=== PATIENT | female | born 1940 | race Hispanic/Latino ===

== ENCOUNTER 2020-10-24 16:20 | Inpatient (IN) | payer MEDICARE ==
[2020-10-24] VITALS (7 sets, daily range): BP systolic 123–137; BP diastolic 70–98
[~2020-10-24] VITALS: Ht 170.2 cm; Wt 87.1 kg
[~2020-10-24 16:20] MED LIST: ASPI-556 PO; ISOS30TA6 PO; LISI1TAB51 PO; SIMV40TA59 PO; VITA-164 PO
[2020-10-24] MEDS ORDERED: METOPROLOL TARTRATE 1 MG/ML 5ML VIAL IV ONE ×2 (17:16→17:37)
[2020-10-24 17:26] LABS: BASOPHILS % (AUTO) 0.5 % (0.0-5.0); HEMATOCRIT 38.7 % (36-48); LYMPHOCYTES % (AUTO) 29.7 % (21.0-51.0); MEAN CORPUSCULAR HEMOGLOBIN 29.3 pg (27.0-33.0); MEAN CORPUSCULAR HGB CONC 32.8 g/dL (32.0-36.0); MEAN CORPUSCULAR VOLUME 89.2 fL (79-99); MONOCYTES % (AUTO) 11.8 % (3.0-13.0); NEUTROPHILS % (AUTO) 55.8 % (40.0-77.0); PLATELET COUNT (AUTO) 289 K/uL (130-400); RED BLOOD CELL COUNT(AUTO) 4.34 MIL/uL (4.00-5.50); RED CELL DISTRIBUTION WIDTH 13.7 % (11.0-15.5); WHITE BLOOD COUNT (AUTO) 5.6 K/uL (4.8-10.8)
--- NOTE | 2020-10-24 17:35 | NUR ---
ASSESSMENT RECEIVED PT DIRECT ADMIT, AMBULATING FROM [facility] TO BED, A&OX3, CALM COOPERATIVE AND DOES NOT APPEAR TO BE IN ANY DISTRESS NOR ANY NEURO DEFICITS PRESENT. PT DENIES PAIN, SOB, NAUSEA OR DIZZINESS. TELEMETRY DISPLAYS ATRIAL FIBRILLATION WITH A RATE OF 130-140 BEATS PER MINUTE, PT RETURNED TO BED, LOPRESSOR 5MG IV [id number] X [address] LAZO WRITTEN ORDER, SBP 130 ,SEE VITAL SIGNS, PT DOES NOT APPEAR TO BE IN ANY DISTRESS NOR ANY NEURO DEFICITS PRESENT. LUNG SOUNDS CLEAR TO ALL LOBES, 2+ NON PITTING EDEMA TO BILATERAL LOWER EXTREMITIES. PT DOES CONFIRM EDEMA TO BILATERAL LOWER EXTREMITIES. TELE MONITOR DISPLAYS ATRIAL FIBRILLATION WITH A RATE OF UPPER 90-120 BEATS PER MINUTE, PT APPEARS COMFORTABLE AND DOES NOT APPEAR TO BE IN ANY DISTRESS. CALL LIGHT WITHIN REACH.
[2020-10-24 17:43] LABS: ALBUMIN 3.5 g/dL (3.5-5.0); BILIRUBIN,TOTAL 0.6 mg/dL (0.2-1.0); CREATININE 1.4 mg/dL (0.5-1.5); MAGNESIUM 1.6 mg/dL (1.80-2.40); POTASSIUM 3.4 mmol/L (3.5-5.1); TOTAL PROTEIN, SERUM 8.2 g/dL (6.0-8.3)
[2020-10-24] MEDS ORDERED: LACTULOSE 20 GM/30 ML UDCUP PO PRN ×2 (17:45→19:00)
[2020-10-24] MEDS ORDERED: DILTIAZEM HCL 125 MG/25 ML 125 MG in SODIUM CHLORIDE 0.9% 100 ML IV SCH (17:45)
[2020-10-24] MEDS ORDERED: ZOLPIDEM TARTRATE 5 MG TAB PO PRN (17:45)
[2020-10-24] MEDS ORDERED: ONDANSETRON HCL 4 MG/2 ML VIAL IVP PRN (17:45)
[2020-10-24] MEDS ORDERED: NITROGLYCERIN 0.4 MG SL TAB SL PRN (17:45)
[2020-10-24] MEDS ORDERED: CLONIDINE HCL 0.1 MG TABLET PO PRN (17:45)
[2020-10-24] MEDS ORDERED: SODIUM CHLORIDE 0.9% 10 ML VIAL IVP SCH (17:45)
[2020-10-24] MEDS ORDERED: DIPHENHYDRAMINE HCL 25 MG CAPSULE PO PRN (17:45)
[2020-10-24 17:55] LABS: B-TYPE NATRIURETIC PEPTIDE 389 pg/mL (0-100)
[2020-10-24 18:55] LABS: PROTHROMBIN TIME 10.8 SEC (9.6-11.6)
[2020-10-24] MEDS ORDERED: CETI10TA57 PO (18:59)
[2020-10-24] MEDS ORDERED: METO-408 PO (18:59)
[2020-10-24] MEDS ORDERED: HYDR12.54 PO (18:59)
[2020-10-24] MEDS ORDERED: SIMV-43 PO (18:59)
[2020-10-24] MEDS ORDERED: ASCO1TAB43 CHEW (18:59)
[2020-10-24] MEDS ORDERED: AMLO-257 PO (18:59)
[2020-10-24] MEDS ORDERED: ACETAMINOPHEN 325 MG TAB PO PRN ×2 (19:00)
[2020-10-24] MEDS: RIVAROXABAN 15 MG TABLET PO SCH (20:35)
[2020-10-25 00:03] VITALS: BP 138/84
[2020-10-25 04:13] VITALS: BP 136/78
[2020-10-25 06:29] LABS: BASOPHILS % (AUTO) 0.5 % (0.0-5.0); EOSINOPHILS % (AUTO) 2.8 % (0.0-8.0); HEMATOCRIT 35.3 % (36-48); LYMPHOCYTES % (AUTO) 26.4 % (21.0-51.0); MEAN CORPUSCULAR HEMOGLOBIN 29.2 pg (27.0-33.0); MEAN CORPUSCULAR HGB CONC 32.6 g/dL (32.0-36.0); MEAN CORPUSCULAR VOLUME 89.6 fL (79-99); NEUTROPHILS % (AUTO) 57.1 % (40.0-77.0); PLATELET COUNT (AUTO) 264 K/uL (130-400); RED BLOOD CELL COUNT(AUTO) 3.94 MIL/uL (4.00-5.50); RED CELL DISTRIBUTION WIDTH 13.6 % (11.0-15.5); WHITE BLOOD COUNT (AUTO) 6.3 K/uL (4.8-10.8)
[2020-10-25 06:44] LABS: CREATININE 1.2 mg/dL (0.5-1.5); POTASSIUM 3.4 mmol/L (3.5-5.1)
[2020-10-25 08:00] VITALS: BP_SYST 132; BP_SYST 168; BP_DIAS 66; BP_DIAS 78
--- NOTE | 2020-10-25 08:00 | NUR ---
AM ASSESSMENT PT AWAKE, ALERT, AND ORIENTED. DENIES CHEST PAIN, NO SOB OR LABORED RESPIRATIONS. PT CONTINUES ON CARDIZEM DRIP FOR RATE CONTROL, AFIB 100-110. TELEMETRY MONITORING
[2020-10-25] MEDS: METOPROLOL SUCCINATE 50 MG TAB.SR.24H PO SCH ×2 (10:27→20:25)
[2020-10-25] MEDS: FUROSEMIDE 10 MG/ML 2ML VIAL IV SCH ×2 (10:28→20:25)
[2020-10-25 11:31] VITALS: BP 100/75
--- NOTE | 2020-10-25 12:04 | NUR ---
VENKAT SEVILLA Spoke with patient's daughter, Bettina Richardson ([phone]). As per Ms Richardson, patient lives at home alone, was independent prior to admission, and has no DME or home services. Ms Richardson feels safe for patient to be discharged home. Ms Richardson to transport patient home via private vehicle. CM to follow up. Addendum: 10/25/20 at 1207 by DEBBIE ESTES Amended: Links added.
[2020-10-25 16:00] VITALS: BP 108/59
[2020-10-25] MEDS ORDERED: POTASSIUM CHLORIDE 10% ELIXIR 20 MEQ/15 ML UDCUP PO PRN (16:15)
[2020-10-25] MEDS ORDERED: LIDOCAINE HCL-MPF 1% 2ML VIAL IV PRN (16:15)
[2020-10-25] MEDS ORDERED: POTASSIUM CHLORIDE 20MEQ/100ML 100 ML IV PRN (16:15)
--- NOTE | 2020-10-25 16:30 | NUR ---
CARDIZEM DRIP WEANED OFF PER DR LAZO. HEART RATE 70-90. DENIES CHEST PAIN OR DISCOMFORT, TELEMETRY MONITORING
[2020-10-25] MEDS: METOPROLOL TARTRATE 1 MG/ML 5ML VIAL IV PRN ×2 (18:24→18:50)
[2020-10-25] MEDS: POTASSIUM CHLORIDE 20 MEQ ERTAB PO PRN (18:53)
[2020-10-25 19:40] VITALS: BP 121/71
[2020-10-25] MEDS: RIVAROXABAN 15 MG TABLET PO SCH (20:25)
[2020-10-25] MEDS ORDERED: MAGNESIUM 2GM PREMIX 50ML 50 ML IV PRN (20:30)
[2020-10-25] MEDS ORDERED: SIMVASTATIN 20 MG TABLET PO SCH (21:00)
[2020-10-26] VITALS (7 sets, daily range): BP systolic 99–120; BP diastolic 56–72
[2020-10-26 03:44] LABS: BASOPHILS % (AUTO) 0.6 % (0.0-5.0); EOSINOPHILS % (AUTO) 3.1 % (0.0-8.0); LYMPHOCYTES % (AUTO) 24.1 % (21.0-51.0); MEAN CORPUSCULAR HEMOGLOBIN 28.9 pg (27.0-33.0); MEAN CORPUSCULAR HGB CONC 32.4 g/dL (32.0-36.0); MEAN CORPUSCULAR VOLUME 89.2 fL (79-99); PLATELET COUNT (AUTO) 302 K/uL (130-400); RED BLOOD CELL COUNT(AUTO) 4.26 MIL/uL (4.00-5.50); RED CELL DISTRIBUTION WIDTH 13.5 % (11.0-15.5); WHITE BLOOD COUNT (AUTO) 6.4 K/uL (4.8-10.8)
[2020-10-26 04:14] LABS: ALBUMIN 3.1 g/dL (3.5-5.0); BILIRUBIN,TOTAL 0.7 mg/dL (0.2-1.0); CREATININE 1.4 mg/dL (0.5-1.5); MAGNESIUM 2.4 mg/dL (1.80-2.40); PHOSPHORUS 3.3 mg/dL (2.5-4.9); POTASSIUM 3.3 mmol/L (3.5-5.1); TOTAL PROTEIN, SERUM 7.4 g/dL (6.0-8.3)
[2020-10-26] MEDS: POTASSIUM CHLORIDE 20 MEQ ERTAB PO PRN ×2 (06:13→07:38)
[2020-10-26] MEDS: CETIRIZINE HCL 5 MG TABLET PO SCH (07:36)
[2020-10-26] MEDS: HYDROCHLOROTHIAZIDE 25 MG TABLET PO SCH (07:36)
[2020-10-26] MEDS: FUROSEMIDE 10 MG/ML 2ML VIAL IV SCH ×2 (07:36→20:29)
[2020-10-26] MEDS: AMLODIPINE BESYLATE 5 MG TAB PO SCH (07:36)
[2020-10-26] MEDS: METOPROLOL SUCCINATE 50 MG TAB.SR.24H PO SCH ×3 (07:36→20:28)
--- NOTE | 2020-10-26 08:00 | NUR ---
ASSESSMENT PT IS AAOX3 DENIES CP DENIES SOB DENIES NV NO COMPLAINTS, SITTING UP IN CHAIR. HR VIA TELE AFIB 110S, AM MEDS GIVEN. CALL LIGHT WITHIN REACH.
[2020-10-26] MEDS ORDERED: METOPROLOL SUCCINATE 50 MG TAB.SR.24H PO SCH (09:45)
--- NOTE | 2020-10-26 10:00 | NUR ---
DR LAZO CALLED UPDATES GIVEN AND ORDERS RECEIVED
--- NOTE | 2020-10-26 16:30 | NUR ---
STATUS NO COMPLAINTS DENIES CP DENIES NV DENIES SOB. EATING DINNER, CALL LIGHT WITHIN REACH.
[2020-10-26] MEDS: RIVAROXABAN 15 MG TABLET PO SCH (20:28)
[2020-10-27 03:45] VITALS: BP 109/59
[2020-10-27 06:21] LABS: BASOPHILS % (AUTO) 0.8 % (0.0-5.0); EOSINOPHILS % (AUTO) 3.2 % (0.0-8.0); LYMPHOCYTES % (AUTO) 30.3 % (21.0-51.0); MEAN CORPUSCULAR HEMOGLOBIN 29.1 pg (27.0-33.0); MEAN CORPUSCULAR HGB CONC 32.6 g/dL (32.0-36.0); MEAN CORPUSCULAR VOLUME 89.4 fL (79-99); MONOCYTES % (AUTO) 12.4 % (3.0-13.0); PLATELET COUNT (AUTO) 290 K/uL (130-400); RED BLOOD CELL COUNT(AUTO) 4.36 MIL/uL (4.00-5.50); RED CELL DISTRIBUTION WIDTH 13.5 % (11.0-15.5); WHITE BLOOD COUNT (AUTO) 6.3 K/uL (4.8-10.8)
[2020-10-27 06:38] LABS: ALBUMIN 3.1 g/dL (3.5-5.0); BILIRUBIN,TOTAL 0.5 mg/dL (0.2-1.0); CREATININE 1.4 mg/dL (0.5-1.5); POTASSIUM 3.5 mmol/L (3.5-5.1); TOTAL PROTEIN, SERUM 7.5 g/dL (6.0-8.3)
[2020-10-27 08:00] VITALS: BP 117/68
[2020-10-27] MEDS: HYDROCHLOROTHIAZIDE 25 MG TABLET PO SCH (08:32)
[2020-10-27] MEDS: METOPROLOL SUCCINATE 50 MG TAB.SR.24H PO SCH (08:32)
[2020-10-27] MEDS: AMLODIPINE BESYLATE 5 MG TAB PO SCH (08:32)
[2020-10-27] MEDS: CETIRIZINE HCL 5 MG TABLET PO SCH (08:32)
[2020-10-27] MEDS: FUROSEMIDE 10 MG/ML 2ML VIAL IV SCH (08:40)
[2020-10-27] MEDS: POTASSIUM CHLORIDE 20 MEQ ERTAB PO PRN (08:41)
--- NOTE | 2020-10-27 11:40 | NUR ---
DR. Murphy LAZO IN ROOM SPEAKING WITH PT. RE:PLAN OF CARE. QUESTIONS ANSWERED BY DR. LAZO.
--- NOTE | 2020-10-27 11:48 | NUR ---
DR. Murphy LAZO CALLING IN PT.'S PRESCRIPTIONS TO [facility] IN [place], [place].
[2020-10-27 12:00] VITALS: BP 119/80
[2020-10-27] MEDS: DILTIAZEM HCL 60 MG TABLET PO SCH ×2 (12:05→14:58)
[2020-10-27 16:00] VITALS: BP 108/78
--- NOTE | 2020-10-27 17:41 | NUR ---
DR. Liane PIERRE IN ROOM SPEAKING WITH PT. RE:DISCHARGE DISPOSITION. QUESTIONS ANSWERED BY DR. PIERRE.
[2020-10-27] MEDS ORDERED: METO100T7 PO (17:52)
[2020-10-27] MEDS ORDERED: RIVA15TA PO (17:52)
[2020-10-27] MEDS ORDERED: DILT-36 PO (17:52)
--- NOTE | 2020-10-27 18:30 | NUR ---
HL REMOVED, CATHETER INTACT. DISCHARGE INSTRUCTIONS GIVEN, PT. VERBALIZED UNDERSTANDING.
--- NOTE | 2020-10-31 10:21 | NUR ---
Transitional Care - Post Discharge Note Spoke with patient at number listed. As per Mrs Mota, she is doing well. She states she has a follow up with her PCP today at 13:30, and is taking discharge medications as ordered. Mrs Mota has been unable to make a follow up with Dr Murphy Nick. With the patient's approval, I called Dr Nick's office and made an appointment for her for November 16 at 9:40 AM in the [place] office. The patient was made aware of the appointment and has agreed to keep appointment. Dr Nick's number was provided to the patient should she need to reschedule. Addendum: 10/31/20 at 1027 by DEBBIE ESTES Amended: Links added.
[2020-11-20] MEDS ORDERED: DILT-36 PO (10:23)
== END 2020-10-27 18:45 | disposition home or self-care (01) | DRG 308 ==
LOC: EDH 16:20 → 4CH 16:21
PROVIDERS: ADMIT Family Medicine; ATTEND Family Medicine
DX: I48.91 Unspecified atrial fibrillation (principal); I50.33 Acute on chronic diastolic (congestive) heart failure; D68.69 Other thrombophilia; E87.6 Hypokalemia; E78.5 Hyperlipidemia, unspecified; I11.0 Hypertensive heart disease with heart failure; Z82.0 Family history of epilepsy and other diseases of the nervous system; Z82.3 Family history of stroke; Z82.49 Family history of ischemic heart disease and other diseases of the circulatory system; Z82.5 Family history of asthma and other chronic lower respiratory diseases; Z83.3 Family history of diabetes mellitus; Z90.710 Acquired absence of both cervix and uterus; Z90.49 Acquired absence of other specified parts of digestive tract; Z80.8 Family history of malignant neoplasm of other organs or systems; Z79.899 Other long term (current) drug therapy
CPT/HCPCS: 36415; 80048; 80053; 80061; 83735; 83880; 84100; 84443; 84484; 85025; 85610; 85730; 93005; 93306; 93356; G0378; J1940; J3475; J3490

== ENCOUNTER 2020-11-21 06:37 | Day surgery (SDC) | payer MEDICARE ==
[2020-11-17 11:28] LABS: BASOPHILS % (AUTO) 0.9 % (0.0-5.0); EOSINOPHILS % (AUTO) 2.3 % (0.0-8.0); HEMATOCRIT 40.5 % (36-48); LYMPHOCYTES % (AUTO) 23.9 % (21.0-51.0); MEAN CORPUSCULAR HEMOGLOBIN 29.2 pg (27.0-33.0); MEAN CORPUSCULAR HGB CONC 32.3 g/dL (32.0-36.0); MEAN CORPUSCULAR VOLUME 90.4 fL (79-99); MONOCYTES % (AUTO) 11.5 % (3.0-13.0); NEUTROPHILS % (AUTO) 61.1 % (40.0-77.0); PLATELET COUNT (AUTO) 271 K/uL (130-400); RED BLOOD CELL COUNT(AUTO) 4.48 MIL/uL (4.00-5.50); RED CELL DISTRIBUTION WIDTH 13.2 % (11.0-15.5); WHITE BLOOD COUNT (AUTO) 6.5 K/uL (4.8-10.8)
[2020-11-17 11:42] LABS: CREATININE 1.3 mg/dL (0.5-1.5); POTASSIUM 3.6 mmol/L (3.5-5.1)
[2020-11-17 11:53] LABS: INR 1.33 (0.85-1.15)
[2020-11-17 11:55] LABS: PARTIAL THROMBOPLASTIN TIME 36.5 SEC (26.3-35.5)
--- NOTE | 2020-11-20 15:01 | NUR ---
SPOKE TO DR LAZO- INFORMED OF PT/PTT/INR AND ABNORMAL LABS. NO NEW ORDERS. PT CAN TAKE XARELTO PRESCRIBED. I SPOKE TO BLAIRE OROSCO NURSE AT [facility] AND REQUESTED H&P
[~2020-11-21] VITALS: Ht 172.7 cm; Wt 77.2 kg
[2020-11-21] VITALS (17 sets, daily range): BP systolic 113–174; BP diastolic 48–86
[~2020-11-21 06:37] MED LIST changes: -ASPI-556 PO; +CETI10TA57 PO; +DILT-36 PO; -ISOS30TA6 PO; -LISI1TAB51 PO; +METO100T7 PO; +RIVA15TA PO; +SIMV-43 PO; -SIMV40TA59 PO; +SODIUM CHLORIDE 0.9% 1000ML 1,000 ML IV SCH; -VITA-164 PO
[2020-11-21] MEDS ORDERED: DILTIAZEM HCL 120 MG CAP.SR.24H PO SCH (07:33)
[2020-11-21] MEDS ORDERED: METOPROLOL SUCCINATE 50 MG TAB.SR.24H PO SCH (07:46)
[2020-11-21] MEDS ORDERED: MIDAZOLAM HCL 1 MG/ML 2ML VIAL ONE (08:05)
[2020-11-21] MEDS ORDERED: FENTANYL CITRATE PF 50 MCG/1 ML 2ML VIAL ONE (08:05)
== END 2020-11-21 11:30 | disposition home or self-care (01) ==
LOC: DAH 06:37
PROVIDERS: ATTEND Internal Medicine Cardiovascular Disease
DX: I48.0 Paroxysmal atrial fibrillation (principal); I11.0 Hypertensive heart disease with heart failure; I50.33 Acute on chronic diastolic (congestive) heart failure; E78.5 Hyperlipidemia, unspecified; E66.3 Overweight; Z79.02 Long term (current) use of antithrombotics/antiplatelets; Z79.01 Long term (current) use of anticoagulants; Z79.899 Other long term (current) drug therapy; Z98.890 Other specified postprocedural states; Z90.49 Acquired absence of other specified parts of digestive tract; Z90.710 Acquired absence of both cervix and uterus; Z68.26 Body mass index [BMI] 26.0-26.9, adult
CPT/HCPCS: 36415; 80048; 85025; 85610; 85730; 92960; 93005 ×2; A4215; A4216; A4221; A4222; A4223 ×3; A4606; A4615; A4663; J2250; J3010; J7030; 99152

== ENCOUNTER 2021-01-23 09:33 | Emergency (ER) | payer MEDICARE ==
[~2021-01-23 09:33] MED LIST changes: -SODIUM CHLORIDE 0.9% 1000ML 1,000 ML IV SCH
[2021-01-23 09:53] LABS: BASOPHILS % (AUTO) 0.6 % (0.0-5.0); EOSINOPHILS % (AUTO) 1.4 % (0.0-8.0); HEMATOCRIT 38.8 % (36-48); LYMPHOCYTES % (AUTO) 27.8 % (21.0-51.0); MEAN CORPUSCULAR HEMOGLOBIN 28.1 pg (27.0-33.0); MEAN CORPUSCULAR VOLUME 85.1 fL (79-99); MONOCYTES % (AUTO) 11.8 % (3.0-13.0); NEUTROPHILS % (AUTO) 58.1 % (40.0-77.0); PLATELET COUNT (AUTO) 327 K/uL (130-400); RED BLOOD CELL COUNT(AUTO) 4.56 MIL/uL (4.00-5.50); RED CELL DISTRIBUTION WIDTH 14.1 % (11.0-15.5); WHITE BLOOD COUNT (AUTO) 6.9 K/uL (4.8-10.8)
[2021-01-23 10:09] LABS: ALBUMIN 3.2 g/dL (3.5-5.0); BILIRUBIN,TOTAL 0.6 mg/dL (0.2-1.0); CREATININE 1.2 mg/dL (0.5-1.5); POTASSIUM 3.6 mmol/L (3.5-5.1); TOTAL PROTEIN, SERUM 7.8 g/dL (6.0-8.3)
[2021-01-23] MEDS ORDERED: LIDOCAINE HCL 2% VISCOUS 15 ML UDCUP ONE (10:23)
[2021-01-23] MEDS ORDERED: MAG HYDROX/AL HYDROX/SIMETH ES 30 ML SUSP UDCUP ONE (10:23)
[2021-01-23] MEDS ORDERED: FAMOTIDINE/PF 20 MG/2 ML VIAL IV ONE (10:24)
[2021-01-23] MEDS ORDERED: SODIUM CHLORIDE 0.9% 1000ML 1,000 ML IV ONE (14:44)
[2021-01-23] MEDS ORDERED: SODIUM CHLORIDE 0.9% 500ML 500 ML IV ONE (14:44)
[2021-01-23] MEDS ORDERED: ACETAMINOPHEN 325 MG TAB ONE (15:50)
== END 2021-01-23 17:41 | disposition home or self-care (01) ==
LOC: EDH 09:33
DX: K29.00 Acute gastritis without bleeding (principal); K21.9 Gastro-esophageal reflux disease without esophagitis; I10 Essential (primary) hypertension; E78.00 Pure hypercholesterolemia, unspecified
CPT/HCPCS: 36415; 74176; 80053; 83690; 84484 ×2; 85025; 93005; 96374; 99285; J3490; J7040; J7030

== ENCOUNTER 2023-02-12 12:04 | Inpatient (IN) | payer MEDICARE ==
[~2023-02-12] VITALS: Ht 157.5 cm; Wt 56.3 kg
[2023-02-12 12:39] LABS: BASOPHILS % (AUTO) 0.2 % (0.0-5.0); EOSINOPHILS % (AUTO) 2.6 % (0.0-8.0); LYMPHOCYTES % (AUTO) 17.1 % (21.0-51.0); MEAN CORPUSCULAR HEMOGLOBIN 25.3 pg (27.0-33.0); MEAN CORPUSCULAR HGB CONC 28.9 g/dL (32.0-36.0); MEAN CORPUSCULAR VOLUME 87.7 fL (79-99); MONOCYTES % (AUTO) 12.6 % (3.0-13.0); NEUTROPHILS % (AUTO) 67.2 % (40.0-77.0); NUCLEATED RED BLOOD CELLS 1.7 % (0.0-0.19); PLATELET COUNT (AUTO) 243 K/uL (130-400); RED BLOOD CELL COUNT(AUTO) 1.62 MIL/uL (4.00-5.50); RED CELL DISTRIBUTION WIDTH 16.8 % (11.0-15.5); WHITE BLOOD COUNT (AUTO) 5.8 K/uL (4.8-10.8)
[2023-02-12 13:04] LABS: CREATININE 1.4 mg/dL (0.5-1.5); POTASSIUM 4.4 mmol/L (3.5-5.1)
[2023-02-12 13:09] LABS: ALBUMIN 2.5 g/dL (3.5-5.0); TOTAL PROTEIN, SERUM 6.1 g/dL (6.0-8.3)
[2023-02-12 13:22] LABS: HEMATOCRIT 14.2 % (36-48)
[2023-02-12 13:23] LABS: B-TYPE NATRIURETIC PEPTIDE 831 pg/mL (0-100)
[2023-02-12] MEDS ORDERED: ACETAMINOPHEN 325 MG TAB PO PRN (15:00)
[2023-02-12] MEDS ORDERED: ONDANSETRON 4MG INJ IVP PRN (15:00)
[2023-02-12] MEDS: PANTOPRAZOLE 40MG INJ 80 MG in 0.9%NACL 100ML 100 ML IVP SCH (16:46)
[2023-02-12] MEDS: DILTIAZEM 60MG TAB PO SCH ×2 (16:48→20:15)
[2023-02-12 19:00] VITALS: BP 142/80
[2023-02-12] MEDS: ATORVASTATIN 10 MG TABLET PO SCH (21:32)
[2023-02-12 23:18] LABS: HEMATOCRIT 21.4 % (36-48)
[2023-02-13] VITALS (17 sets, daily range): BP systolic 95–170; BP diastolic 50–102
[2023-02-13 01:06] LABS: HEMATOCRIT 21.2 % (36-48)
[2023-02-13 07:27] LABS: % IRON SATURATION 7.6 % (22-44); HEMATOCRIT 26.4 % (36-48); RETICULOCYTE % (AUTO) 1.93 % (0.42-2.23)
[2023-02-13] MEDS: SERTRALINE HCL 50 MG TABLET PO SCH (08:17)
[2023-02-13] MEDS: DILTIAZEM 60MG TAB PO SCH ×4 (08:17→19:54)
[2023-02-13] MEDS: PANTOPRAZOLE 40MG INJ 80 MG in 0.9%NACL 100ML 100 ML IVP SCH (08:26)
[2023-02-13 09:45] LABS: INR 1.17 (0.85-1.15); PROTHROMBIN TIME 12.6 SEC (9.6-11.6)
[2023-02-13 09:46] LABS: PARTIAL THROMBOPLASTIN TIME 33.2 SEC (26.3-35.5)
[2023-02-13] MEDS ORDERED: FUROSEMIDE 40MG VIAL IV ONE (10:30)
[2023-02-13] MEDS ORDERED: 0.9%NACL 1000ML 1,000 ML IV ONE (10:53)
[2023-02-13] MEDS ORDERED: PROPOFOL 10 MG/ML 20ML VIAL IV ONE (12:29)
[2023-02-13] MEDS ORDERED: COMPOUND IV MISC 1 EACH IVSOLN MISC PRN (14:00)
[2023-02-13] MEDS: IRON SUCROSE COMPLEX 300 MG in 0.9% NACL 250ML 250 ML IV SCH (14:34)
[2023-02-13 17:10] LABS: HEMATOCRIT 25.3 % (36-48)
[2023-02-13] MEDS: ATORVASTATIN 10 MG TABLET PO SCH (19:54)
[2023-02-13 23:08] LABS: HEMATOCRIT 24.8 % (36-48)
[2023-02-14] VITALS (7 sets, daily range): BP systolic 120–157; BP diastolic 52–80
[2023-02-14 04:48] LABS: ALBUMIN 2.5 g/dL (3.5-5.0); CREATININE 1.2 mg/dL (0.5-1.5); POTASSIUM 3.5 mmol/L (3.5-5.1); TOTAL PROTEIN, SERUM 6.1 g/dL (6.0-8.3)
[2023-02-14 04:56] LABS: BASOPHILS % (AUTO) 0.4 % (0.0-5.0); EOSINOPHILS % (AUTO) 1.6 % (0.0-8.0); HEMATOCRIT 22.2 % (36-48); LYMPHOCYTES % (AUTO) 12.9 % (21.0-51.0); MEAN CORPUSCULAR HEMOGLOBIN 27.1 pg (27.0-33.0); MEAN CORPUSCULAR VOLUME 84.7 fL (79-99); MONOCYTES % (AUTO) 12.7 % (3.0-13.0); NUCLEATED RED BLOOD CELLS 2.3 % (0.0-0.19); PLATELET COUNT (AUTO) 217 K/uL (130-400); RED BLOOD CELL COUNT(AUTO) 2.62 MIL/uL (4.00-5.50); RED CELL DISTRIBUTION WIDTH 17.1 % (11.0-15.5); WHITE BLOOD COUNT (AUTO) 7.4 K/uL (4.8-10.8)
[2023-02-14] MEDS ORDERED: PANTOPRAZOLE 40 MG TAB DR PO SCH (09:00)
[2023-02-14] MEDS ORDERED: EPOETIN ALFA-EPBX (NON-ESRD) 10,000 UNIT/ML VIAL SQ SCH (09:00)
[2023-02-14] MEDS: DILTIAZEM 60MG TAB PO SCH ×4 (09:35→19:33)
[2023-02-14] MEDS: SERTRALINE HCL 50 MG TABLET PO SCH (09:35)
[2023-02-14 11:57] LABS: HEMATOCRIT 22.9 % (36-48)
[2023-02-14] MEDS: IRON SUCROSE COMPLEX 300 MG in 0.9% NACL 250ML 250 ML IV SCH (16:07)
[2023-02-14] MEDS: PANTOPRAZOLE 40 MG TAB DR PO SCH (19:33)
[2023-02-14] MEDS: ATORVASTATIN 10 MG TABLET PO SCH (19:33)
[2023-02-15 03:10] VITALS: BP_SYST 110; BP_SYST 122; BP_DIAS 65; BP_DIAS 67
[2023-02-15 04:38] LABS: BASOPHILS % (AUTO) 0.5 % (0.0-5.0); LYMPHOCYTES % (AUTO) 13.6 % (21.0-51.0); MEAN CORPUSCULAR HEMOGLOBIN 26.7 pg (27.0-33.0); MEAN CORPUSCULAR HGB CONC 30.9 g/dL (32.0-36.0); MEAN CORPUSCULAR VOLUME 86.3 fL (79-99); MONOCYTES % (AUTO) 13.8 % (3.0-13.0); NEUTROPHILS % (AUTO) 69.6 % (40.0-77.0); NUCLEATED RED BLOOD CELLS 2.9 % (0.0-0.19); PLATELET COUNT (AUTO) 203 K/uL (130-400); RED BLOOD CELL COUNT(AUTO) 2.55 MIL/uL (4.00-5.50); RED CELL DISTRIBUTION WIDTH 17.1 % (11.0-15.5); WHITE BLOOD COUNT (AUTO) 5.9 K/uL (4.8-10.8)
[2023-02-15 04:59] LABS: ALBUMIN 2.3 g/dL (3.5-5.0); CREATININE 1.1 mg/dL (0.5-1.5); MAGNESIUM 1.3 mg/dL (1.80-2.40); POTASSIUM 3.4 mmol/L (3.5-5.1); TOTAL PROTEIN, SERUM 5.7 g/dL (6.0-8.3)
[2023-02-15 07:10] VITALS: BP 135/66
[2023-02-15] MEDS ORDERED: LIDOCAINE HCL-MPF 1% 2ML VIAL IV PRN (08:30)
[2023-02-15] MEDS ORDERED: POTASSIUM CHLORIDE 20MEQ/100ML 100 ML IV PRN (08:30)
[2023-02-15] MEDS: DILTIAZEM 60MG TAB PO SCH ×4 (09:34→19:57)
[2023-02-15] MEDS: PANTOPRAZOLE 40 MG TAB DR PO SCH ×2 (09:34→19:56)
[2023-02-15] MEDS: POTASSIUM CHLORIDE 10% ELIXIR 20 MEQ/15 ML UDCUP PO PRN ×2 (09:35→13:22)
[2023-02-15] MEDS: SERTRALINE HCL 50 MG TABLET PO SCH (09:35)
[2023-02-15] MEDS: MAGNESIUM 2GM PREMIX 50ML 50 ML IV PRN (09:36)
[2023-02-15 11:10] VITALS: BP 120/55
[2023-02-15 13:03] LABS: HEMATOCRIT 25.2 % (36-48)
[2023-02-15] MEDS ORDERED: PHARMACY COMMUNICATION MISC SCH (13:30)
[2023-02-15 15:10] VITALS: BP 128/67
[2023-02-15 19:39] VITALS: BP 139/72
[2023-02-15] MEDS: ATORVASTATIN 10 MG TABLET PO SCH (19:56)
[2023-02-15] MEDS: IRON SUCROSE COMPLEX 300 MG in 0.9% NACL 250ML 250 ML IV SCH (20:10)
[2023-02-15 23:11] VITALS: BP 126/65
[2023-02-16] MEDS ORDERED: METOPROLOL TARTRATE 1 MG/ML 5ML VIAL IV ONE ×2 (01:30→05:00)
[2023-02-16 02:15] LABS: BASOPHILS % (AUTO) 0.6 % (0.0-5.0); HEMATOCRIT 24.8 % (36-48); LYMPHOCYTES % (AUTO) 17.2 % (21.0-51.0); MEAN CORPUSCULAR HGB CONC 30.2 g/dL (32.0-36.0); MEAN CORPUSCULAR VOLUME 89.2 fL (79-99); MONOCYTES % (AUTO) 12.1 % (3.0-13.0); NEUTROPHILS % (AUTO) 66.5 % (40.0-77.0); NUCLEATED RED BLOOD CELLS 2.4 % (0.0-0.19); PLATELET COUNT (AUTO) 216 K/uL (130-400); RED BLOOD CELL COUNT(AUTO) 2.78 MIL/uL (4.00-5.50); WHITE BLOOD COUNT (AUTO) 5.1 K/uL (4.8-10.8)
[2023-02-16 02:31] LABS: CREATININE 1.2 mg/dL (0.5-1.5); MAGNESIUM 1.6 mg/dL (1.80-2.40)
[2023-02-16] MEDS: MAGNESIUM 2GM PREMIX 50ML 50 ML IV PRN (02:37)
[2023-02-16 03:27] VITALS: BP 143/77
[2023-02-16] MEDS ORDERED: METOPROLOL TARTRATE 1 MG/ML 5ML VIAL IV STA (06:35)
[2023-02-16] MEDS: PANTOPRAZOLE 40 MG TAB DR PO SCH ×2 (09:09→19:51)
[2023-02-16] MEDS: DILTIAZEM 60MG TAB PO SCH (09:10)
[2023-02-16] MEDS: SERTRALINE HCL 50 MG TABLET PO SCH (09:10)
[2023-02-16] MEDS ORDERED: EPOETIN ALFA-EPBX (NON-ESRD) 10,000 UNIT/ML VIAL SQ SCH (11:30)
[2023-02-16 12:00] VITALS: BP 131/77
[2023-02-16 12:44] LABS: HEMATOCRIT 28.9 % (36-48)
[2023-02-16 16:00] VITALS: BP 152/77
[2023-02-16] MEDS: METOPROLOL SUCCINATE 50 MG TAB.SR.24H PO SCH (19:51)
[2023-02-16] MEDS: DILTIAZEM 120MG SR CAP PO SCH (19:51)
[2023-02-16] MEDS: ATORVASTATIN 10 MG TABLET PO SCH (19:51)
[2023-02-16 20:23] VITALS: BP 149/76
[2023-02-16 23:50] VITALS: BP 141/72
[2023-02-17 04:51] VITALS: BP 133/66
[2023-02-17 05:56] LABS: % IRON SATURATION 17.7 % (22-44)
[2023-02-17 08:00] VITALS: BP 142/55
[2023-02-17] MEDS ORDERED: LACTULOSE 20 GM/30 ML UDCUP PO SCH (09:00)
[2023-02-17] MEDS ORDERED: LACTULOSE 20 GM/30 ML UDCUP ONE (09:06)
[2023-02-17] MEDS: METOPROLOL SUCCINATE 50 MG TAB.SR.24H PO SCH ×2 (09:07→20:09)
[2023-02-17] MEDS: PANTOPRAZOLE 40 MG TAB DR PO SCH ×2 (09:08→20:10)
[2023-02-17] MEDS: SERTRALINE HCL 50 MG TABLET PO SCH (09:08)
[2023-02-17] MEDS: DILTIAZEM 120MG SR CAP PO SCH ×2 (09:08→20:10)
[2023-02-17 09:37] LABS: BASOPHILS % (AUTO) 0.4 % (0.0-5.0); EOSINOPHILS % (AUTO) 2.8 % (0.0-8.0); LYMPHOCYTES % (AUTO) 18.5 % (21.0-51.0); MEAN CORPUSCULAR HEMOGLOBIN 27.4 pg (27.0-33.0); MEAN CORPUSCULAR VOLUME 91.2 fL (79-99); MONOCYTES % (AUTO) 12.8 % (3.0-13.0); NEUTROPHILS % (AUTO) 65.1 % (40.0-77.0); NUCLEATED RED BLOOD CELLS 0.7 % (0.0-0.19); PLATELET COUNT (AUTO) 224 K/uL (130-400); RED BLOOD CELL COUNT(AUTO) 2.74 MIL/uL (4.00-5.50); RED CELL DISTRIBUTION WIDTH 19.3 % (11.0-15.5); WHITE BLOOD COUNT (AUTO) 5.4 K/uL (4.8-10.8)
[2023-02-17 09:52] LABS: ALBUMIN 2.4 g/dL (3.5-5.0); CREATININE 1.4 mg/dL (0.5-1.5); POTASSIUM 3.6 mmol/L (3.5-5.1); TOTAL PROTEIN, SERUM 5.9 g/dL (6.0-8.3)
[2023-02-17 12:00] VITALS: BP 123/69
[2023-02-17] MEDS: FOLIC ACID 5 MG/ML VIAL IV SCH (12:47)
[2023-02-17 16:00] VITALS: BP 126/74
[2023-02-17] MEDS ORDERED: PEG 3350/NA SULF,BICARB,CL/KCL 4000 ML SOLN PO SCH (17:30)
[2023-02-17 19:54] VITALS: BP 139/70
[2023-02-17] MEDS: ATORVASTATIN 10 MG TABLET PO SCH (20:10)
[2023-02-17 23:37] VITALS: BP 125/74
[2023-02-18] VITALS (21 sets, daily range): BP systolic 105–159; BP diastolic 55–83
[2023-02-18 03:42] LABS: HEMATOCRIT 24.7 % (36-48)
[2023-02-18] MEDS: METOPROLOL SUCCINATE 50 MG TAB.SR.24H PO SCH ×2 (09:00→21:02)
[2023-02-18] MEDS: DILTIAZEM 120MG SR CAP PO SCH ×2 (09:00→21:03)
[2023-02-18] MEDS: PANTOPRAZOLE 40 MG TAB DR PO SCH ×2 (09:00→21:02)
[2023-02-18] MEDS: FOLIC ACID 5 MG/ML VIAL IV SCH (09:00)
[2023-02-18] MEDS: SERTRALINE HCL 50 MG TABLET PO SCH (09:00)
[2023-02-18 09:13] LABS: HEMATOCRIT 25.2 % (36-48)
[2023-02-18] MEDS ORDERED: PROPOFOL 10 MG/ML 20ML VIAL IV ONE (14:37)
[2023-02-18 17:26] LABS: HEMATOCRIT 28.8 % (36-48)
[2023-02-18] MEDS: ATORVASTATIN 10 MG TABLET PO SCH (21:02)
[2023-02-18 21:11] LABS: HEMATOCRIT 25.3 % (36-48)
[2023-02-19] VITALS (21 sets, daily range): BP systolic 109–137; BP diastolic 54–70
[2023-02-19] MEDS ORDERED: PROPOFOL 10 MG/ML 20ML VIAL IV ONE (12:27)
[2023-02-19] MEDS: FOLIC ACID 5 MG/ML VIAL IV SCH (17:14)
[2023-02-19] MEDS: PANTOPRAZOLE 40 MG TAB DR PO SCH ×2 (17:14→20:28)
[2023-02-19] MEDS: DILTIAZEM 120MG SR CAP PO SCH ×3 (17:14→21:00)
[2023-02-19] MEDS: SERTRALINE HCL 50 MG TABLET PO SCH (17:14)
[2023-02-19] MEDS: METOPROLOL SUCCINATE 50 MG TAB.SR.24H PO SCH ×2 (17:14→21:00)
[2023-02-19 17:55] LABS: HEMATOCRIT 27.3 % (36-48)
[2023-02-19] MEDS: ATORVASTATIN 10 MG TABLET PO SCH (20:24)
[2023-02-20] VITALS (7 sets, daily range): BP systolic 126–141; BP diastolic 55–80
[2023-02-20 05:30] LABS: BASOPHILS % (AUTO) 0.5 % (0.0-5.0); EOSINOPHILS % (AUTO) 2.8 % (0.0-8.0); HEMATOCRIT 24.5 % (36-48); LYMPHOCYTES % (AUTO) 16.1 % (21.0-51.0); MEAN CORPUSCULAR HEMOGLOBIN 28.1 pg (27.0-33.0); MEAN CORPUSCULAR HGB CONC 29.8 g/dL (32.0-36.0); MEAN CORPUSCULAR VOLUME 94.2 fL (79-99); MONOCYTES % (AUTO) 11.6 % (3.0-13.0); NEUTROPHILS % (AUTO) 68.2 % (40.0-77.0); PLATELET COUNT (AUTO) 221 K/uL (130-400); RED CELL DISTRIBUTION WIDTH 23.3 % (11.0-15.5); WHITE BLOOD COUNT (AUTO) 6.4 K/uL (4.8-10.8)
[2023-02-20 05:44] LABS: ALBUMIN 2.2 g/dL (3.5-5.0); CREATININE 1.5 mg/dL (0.5-1.5); MAGNESIUM 1.5 mg/dL (1.80-2.40); POTASSIUM 3.2 mmol/L (3.5-5.1); TOTAL PROTEIN, SERUM 5.6 g/dL (6.0-8.3)
[2023-02-20] MEDS: MAGNESIUM 2GM PREMIX 50ML 50 ML IV PRN (05:49)
[2023-02-20] MEDS: KCL 20 MEQ ERTAB PO PRN ×2 (05:49→15:57)
[2023-02-20] MEDS: POTASSIUM CHLORIDE 10% ELIXIR 20 MEQ/15 ML UDCUP PO PRN (05:56)
[2023-02-20] MEDS ORDERED: EPOETIN ALFA-EPBX (NON-ESRD) 10,000 UNIT/ML VIAL SQ SCH (08:30)
[2023-02-20] MEDS: DILTIAZEM 120MG SR CAP PO SCH ×2 (09:37→20:28)
[2023-02-20] MEDS: SERTRALINE HCL 50 MG TABLET PO SCH (09:37)
[2023-02-20] MEDS: PANTOPRAZOLE 40 MG TAB DR PO SCH ×2 (09:37→20:28)
[2023-02-20] MEDS: METOPROLOL SUCCINATE 50 MG TAB.SR.24H PO SCH ×2 (09:37→20:29)
[2023-02-20] MEDS: FOLIC ACID 5 MG/ML VIAL IV SCH (09:46)
[2023-02-20 13:01] LABS: HEMATOCRIT 26.2 % (36-48)
[2023-02-20] MEDS: ATORVASTATIN 10 MG TABLET PO SCH (20:29)
[2023-02-20] MEDS ORDERED: IRON SUCROSE COMPLEX 500 MG in 0.9% NACL 250ML 250 ML IV SCH (21:00)
[2023-02-21 04:29] VITALS: BP 138/67
[2023-02-21 05:03] LABS: BASOPHILS % (AUTO) 0.7 % (0.0-5.0); EOSINOPHILS % (AUTO) 3.4 % (0.0-8.0); HEMATOCRIT 24.7 % (36-48); LYMPHOCYTES % (AUTO) 16.1 % (21.0-51.0); MEAN CORPUSCULAR HEMOGLOBIN 27.6 pg (27.0-33.0); MEAN CORPUSCULAR HGB CONC 29.1 g/dL (32.0-36.0); MEAN CORPUSCULAR VOLUME 94.6 fL (79-99); MONOCYTES % (AUTO) 11.9 % (3.0-13.0); NEUTROPHILS % (AUTO) 67.4 % (40.0-77.0); PLATELET COUNT (AUTO) 209 K/uL (130-400); RED BLOOD CELL COUNT(AUTO) 2.61 MIL/uL (4.00-5.50); RED CELL DISTRIBUTION WIDTH 23.9 % (11.0-15.5)
[2023-02-21 05:34] LABS: ALBUMIN 2.3 g/dL (3.5-5.0); CREATININE 1.3 mg/dL (0.5-1.5); TOTAL PROTEIN, SERUM 5.7 g/dL (6.0-8.3)
[2023-02-21 08:00] VITALS: BP 123/68
[2023-02-21] MEDS: PANTOPRAZOLE 40 MG TAB DR PO SCH ×2 (09:36→20:56)
[2023-02-21] MEDS: DILTIAZEM 120MG SR CAP PO SCH ×2 (09:37→20:56)
[2023-02-21] MEDS: SERTRALINE HCL 50 MG TABLET PO SCH (09:37)
[2023-02-21] MEDS: METOPROLOL SUCCINATE 50 MG TAB.SR.24H PO SCH ×2 (09:37→20:57)
[2023-02-21] MEDS: FOLIC ACID 5 MG/ML VIAL IV SCH (10:08)
[2023-02-21 12:00] VITALS: BP 130/60
[2023-02-21 12:38] LABS: HEMATOCRIT 26.3 % (36-48)
[2023-02-21 16:00] VITALS: BP 102/54
[2023-02-21 19:13] VITALS: BP 106/49
[2023-02-21] MEDS: ATORVASTATIN 10 MG TABLET PO SCH (20:57)
[2023-02-22 00:07] VITALS: BP 117/60
[2023-02-22 03:31] VITALS: BP 109/55
[2023-02-22 05:47] LABS: BASOPHILS % (AUTO) 0.6 % (0.0-5.0); EOSINOPHILS % (AUTO) 5.7 % (0.0-8.0); HEMATOCRIT 23.4 % (36-48); LYMPHOCYTES % (AUTO) 22.9 % (21.0-51.0); MEAN CORPUSCULAR HEMOGLOBIN 28.3 pg (27.0-33.0); MEAN CORPUSCULAR HGB CONC 28.6 g/dL (32.0-36.0); MEAN CORPUSCULAR VOLUME 98.7 fL (79-99); MONOCYTES % (AUTO) 13.4 % (3.0-13.0); NEUTROPHILS % (AUTO) 56.8 % (40.0-77.0); PLATELET COUNT (AUTO) 201 K/uL (130-400); RED BLOOD CELL COUNT(AUTO) 2.37 MIL/uL (4.00-5.50); RED CELL DISTRIBUTION WIDTH 24.2 % (11.0-15.5); WHITE BLOOD COUNT (AUTO) 6.2 K/uL (4.8-10.8)
[2023-02-22 06:01] LABS: ALBUMIN 2.2 g/dL (3.5-5.0); ASPARTATE AMINOTRANSFERASE 15 U/L (10-37); CARBON DIOXIDE 30 mmol/L (21-32); CHLORIDE 107 mmol/L (101-111); CREATININE 1.4 mg/dL (0.5-1.5); GLOMERULAR FILTR. RATE CALC 37 mL/min (>90); GLUCOSE,RANDOM 97 mg/dL (70-105); POTASSIUM 3.5 mmol/L (3.5-5.1); SODIUM SERUM 138 mmol/L (136-145); TOTAL PROTEIN, SERUM 5.6 g/dL (6.0-8.3); UREA NITROGEN, BLOOD 22 mg/dL (7-18)
[2023-02-22 06:14] LABS: ALANINE AMINOTRANSFERASE < 6 U/L (12-78)
[2023-02-22 07:39] LABS: HEMATOCRIT 25.4 % (36-48)
[2023-02-22 07:59] VITALS: BP 116/34
[2023-02-22] MEDS: PANTOPRAZOLE 40 MG TAB DR PO SCH ×2 (09:52→20:52)
[2023-02-22] MEDS: DILTIAZEM 120MG SR CAP PO SCH ×2 (09:53→20:53)
[2023-02-22] MEDS: SERTRALINE HCL 50 MG TABLET PO SCH (09:54)
[2023-02-22] MEDS: METOPROLOL SUCCINATE 50 MG TAB.SR.24H PO SCH ×2 (09:54→20:52)
[2023-02-22] MEDS: FOLIC ACID 5 MG/ML VIAL IV SCH (09:54)
[2023-02-22] MEDS: KCL 20 MEQ ERTAB PO PRN (09:55)
[2023-02-22 11:25] VITALS: BP 110/51
[2023-02-22 12:56] LABS: HEMATOCRIT 25.6 % (36-48)
[2023-02-22] MEDS: POTASSIUM CHLORIDE 10% ELIXIR 20 MEQ/15 ML UDCUP PO PRN (13:54)
[2023-02-22 16:00] VITALS: BP 107/60
[2023-02-22 20:00] VITALS: BP 119/54
[2023-02-22] MEDS: ATORVASTATIN 10 MG TABLET PO SCH (20:52)
[2023-02-23] VITALS: BP 128/61
[2023-02-23 04:00] VITALS: BP 111/53
[2023-02-23 07:18] LABS: BASOPHILS % (AUTO) 0.8 % (0.0-5.0); EOSINOPHILS % (AUTO) 6.8 % (0.0-8.0); HEMATOCRIT 25.9 % (36-48); LYMPHOCYTES % (AUTO) 26.6 % (21.0-51.0); MEAN CORPUSCULAR HEMOGLOBIN 28.6 pg (27.0-33.0); MEAN CORPUSCULAR HGB CONC 28.6 g/dL (32.0-36.0); MONOCYTES % (AUTO) 12.9 % (3.0-13.0); NEUTROPHILS % (AUTO) 52.5 % (40.0-77.0); PLATELET COUNT (AUTO) 71 K/uL (130-400); RED BLOOD CELL COUNT(AUTO) 2.59 MIL/uL (4.00-5.50); RED CELL DISTRIBUTION WIDTH 24.5 % (11.0-15.5); WHITE BLOOD COUNT (AUTO) 4.7 K/uL (4.8-10.8)
[2023-02-23 07:20] LABS: CREATININE 1.2 mg/dL (0.5-1.5); POTASSIUM 4.1 mmol/L (3.5-5.1)
[2023-02-23 08:00] VITALS: BP 121/46
[2023-02-23] MEDS: METOPROLOL SUCCINATE 50 MG TAB.SR.24H PO SCH ×2 (08:11→22:03)
[2023-02-23] MEDS: DILTIAZEM 120MG SR CAP PO SCH ×2 (08:11→22:03)
[2023-02-23] MEDS: PANTOPRAZOLE 40 MG TAB DR PO SCH ×2 (08:44→22:03)
[2023-02-23] MEDS: SERTRALINE HCL 50 MG TABLET PO SCH (08:44)
[2023-02-23] MEDS: FOLIC ACID 5 MG/ML VIAL IV SCH (08:45)
[2023-02-23 12:00] VITALS: BP 119/65
[2023-02-23] MEDS ORDERED: METOPROLOL SUCCINATE 50 MG TAB.SR.24H PO ONE (12:00)
[2023-02-23 12:54] LABS: BASOPHILS % (AUTO) 0.9 % (0.0-5.0); HEMATOCRIT 25.7 % (36-48); LYMPHOCYTES % (AUTO) 22.3 % (21.0-51.0); MEAN CORPUSCULAR HEMOGLOBIN 28.8 pg (27.0-33.0); MEAN CORPUSCULAR HGB CONC 28.8 g/dL (32.0-36.0); MONOCYTES % (AUTO) 11.6 % (3.0-13.0); NEUTROPHILS % (AUTO) 57.8 % (40.0-77.0); PLATELET COUNT (AUTO) 270 K/uL (130-400); RED BLOOD CELL COUNT(AUTO) 2.57 MIL/uL (4.00-5.50); RED CELL DISTRIBUTION WIDTH 24.5 % (11.0-15.5); WHITE BLOOD COUNT (AUTO) 4.6 K/uL (4.8-10.8)
[2023-02-23 16:00] VITALS: BP 135/60
[2023-02-23 20:00] VITALS: BP 141/66
[2023-02-23] MEDS: ATORVASTATIN 10 MG TABLET PO SCH (22:03)
[2023-02-24] VITALS: BP 129/55
[2023-02-24 04:00] VITALS: BP 103/67
[2023-02-24 05:37] LABS: BASOPHILS % (AUTO) 0.6 % (0.0-5.0); EOSINOPHILS % (AUTO) 5.6 % (0.0-8.0); HEMATOCRIT 24.8 % (36-48); LYMPHOCYTES % (AUTO) 26.6 % (21.0-51.0); MEAN CORPUSCULAR HEMOGLOBIN 28.6 pg (27.0-33.0); MEAN CORPUSCULAR HGB CONC 29.4 g/dL (32.0-36.0); MEAN CORPUSCULAR VOLUME 97.3 fL (79-99); MONOCYTES % (AUTO) 12.8 % (3.0-13.0); NEUTROPHILS % (AUTO) 54.2 % (40.0-77.0); PLATELET COUNT (AUTO) 276 K/uL (130-400); RED BLOOD CELL COUNT(AUTO) 2.55 MIL/uL (4.00-5.50); RED CELL DISTRIBUTION WIDTH 23.9 % (11.0-15.5); WHITE BLOOD COUNT (AUTO) 4.7 K/uL (4.8-10.8)
[2023-02-24 05:48] LABS: CREATININE 1.3 mg/dL (0.5-1.5); MAGNESIUM 1.6 mg/dL (1.80-2.40); POTASSIUM 3.7 mmol/L (3.5-5.1)
[2023-02-24] MEDS: MAGNESIUM 2GM PREMIX 50ML 50 ML IV PRN (07:09)
[2023-02-24 07:30] VITALS: BP 131/59
[2023-02-24] MEDS: METOPROLOL SUCCINATE 50 MG TAB.SR.24H PO SCH (08:35)
[2023-02-24] MEDS: PANTOPRAZOLE 40 MG TAB DR PO SCH (08:35)
[2023-02-24] MEDS: DILTIAZEM 120MG SR CAP PO SCH (08:35)
[2023-02-24] MEDS: SERTRALINE HCL 50 MG TABLET PO SCH (08:36)
[2023-02-24] MEDS ORDERED: FOLIC ACID 1 MG TABLET PO SCH (09:00)
[2023-02-24] MEDS ORDERED: CYANOCOBALAMIN (VITAMIN B-12) 1,000 MCG TABLET PO SCH (11:30)
[2023-02-24 11:55] VITALS: BP 116/59
[2023-02-24] MEDS ORDERED: SERT50TA PO (13:09)
[2023-02-24] MEDS ORDERED: DILT120C89 PO (13:09)
[2023-02-24] MEDS ORDERED: CYAN-52 PO (13:09)
[2023-02-24] MEDS ORDERED: FERR324T4 PO (13:09)
[2023-02-24] MEDS ORDERED: FOLI1 PO (13:09)
[2023-02-24] MEDS ORDERED: METO50TA9 PO (13:09)
[2023-02-24] MEDS ORDERED: PANT40TA PO (13:09)
[2023-02-24 15:15] VITALS: BP 124/55
[2023-02-24] MEDS ORDERED: SIMVASTATIN 20 MG TABLET PO SCH (21:00)
[2023-02-24] MEDS ORDERED: IRON SUCROSE COMPLEX 300 MG in 0.9% NACL 250ML 250 ML IV SCH (21:00)
[2023-02-26] MEDS ORDERED: FERROUS SULFATE 325 MG TABLET.DR PO SCH (09:00)
== END 2023-02-24 15:50 | DRG 377 ==
LOC: EDH 12:04 → EDHIP 14:38 → 4AH 18:15
PROVIDERS: ADMIT Internal Medicine; ATTEND Internal Medicine
PROC: 30233N1 Transfusion of Nonautologous Red Blood Cells into Peripheral Vein, Percutaneous Approach (ICD-10-PCS; 2023-02-12)
PROC: 0DB68ZX Excision of Stomach, Via Natural or Artificial Opening Endoscopic, Diagnostic (ICD-10-PCS; principal; 2023-02-13)
PROC: 0DJD8ZZ Inspection of Lower Intestinal Tract, Via Natural or Artificial Opening Endoscopic (ICD-10-PCS; 2023-02-18)
PROC: 0DJ08ZZ Inspection of Upper Intestinal Tract, Via Natural or Artificial Opening Endoscopic (ICD-10-PCS; 2023-02-19)
DX: K29.01 Acute gastritis with bleeding (principal); E43 Unspecified severe protein-calorie malnutrition; I50.33 Acute on chronic diastolic (congestive) heart failure; D62 Acute posthemorrhagic anemia; K57.31 Diverticulosis of large intestine without perforation or abscess with bleeding; I11.0 Hypertensive heart disease with heart failure; Z20.822 Contact with and (suspected) exposure to COVID-19; M51.36 Other intervertebral disc degeneration, lumbar region; I25.10 Atherosclerotic heart disease of native coronary artery without angina pectoris; I95.9 Hypotension, unspecified; I48.91 Unspecified atrial fibrillation; R53.81 Other malaise; N20.0 Calculus of kidney; D73.4 Cyst of spleen; E78.5 Hyperlipidemia, unspecified; K21.9 Gastro-esophageal reflux disease without esophagitis; F32.A Depression, unspecified; Z79.01 Long term (current) use of anticoagulants; Z79.82 Long term (current) use of aspirin; Z79.899 Other long term (current) drug therapy; Z90.710 Acquired absence of both cervix and uterus
CPT/HCPCS: 36415; 36430; 43239; 44360; 45378; 71045; 78278; 80048; 80053; 82270; 82728; 83540; 83550; 83605; 83735; 83880; 84484; 85007; 85014; 85018; 85025; 85045; 85610; 85730; 86850; 86900; 86901; 86923; 87040; 87426; 88305; 93005; 97039; A4606; A9512; C9113; G0378; J1756; J1940; J2405; J2704; J3475; J3490; J7030; J7050; P9016

== ENCOUNTER 2024-11-11 09:31 | Emergency (ER) | payer MEDICARE ==
[~2024-11-11] VITALS: Ht 170.2 cm; Wt 68.0 kg
[~2024-11-11 09:31] MED LIST changes: +CYAN-52 PO; -DILT-36 PO; +DILT120C89 PO; +FERR324T4 PO; +FOLI1 PO; -METO100T7 PO; +METO50TA9 PO; +PANT40TA PO; -RIVA15TA PO; +SERT50TA PO
[2024-11-11 09:34] VITALS: BP 174/107; PULSE 98; RESP 20; TEMP 98
[2024-11-11] MEDS ORDERED: acetaMINOPHEN WITH coDEINE 1 TAB TAB PO PRN (10:00)
--- NOTE | 2024-11-11 10:07 | ERN ---
ED Note History of Present Illness Stated Complaint: LT HIP PAIN Chief Complaint: Hip Pain/Injury Time Seen by MD: 09:41 Dictation: Patient is a 84-year-old female with a past medical history of hypertension, heart disease, GERD, A-fib who presents to the ED for left hip pain that radiates to the front. She states the pain worsened over the past 3 days and is exacerbated by movement. She also mentions having a recent UTI. She denies any chest pain, shortness of breath, dysuria, weakness, fevers or chills. She denies any recent injuries or falls. Patient states she is on a blood thinner. Allergies: Coded Allergies: No Known Drug Allergies (Unverified Allergy, Unknown, 03/31/15) Home Meds Active Scripts Meloxicam (Meloxicam) 15 Mg Tablet, 7.5 MG PO DAILY PRN for PAIN for 20 Days, #20 TAB Prov:SHEILA ALMARAZ DO 11/11/24 Sertraline HCl (Zoloft) 50 Mg Tablet, 50 MG PO DAILY, #30 TAB Prov:BINA XIONG MD 02/24/23 Pantoprazole Sodium (Protonix) 40 Mg Tablet., 40 MG PO BID, #60 TAB Prov:BINA XIONG MD 02/24/23 Metoprolol Succinate (Toprol Xl) 50 Mg Tab.er.24h, 100 MG PO BID, #30 TAB Prov:BINA XIONG MD 02/24/23 Diltiazem HCl (Cardizem Cd 120 mg) 120 Mg Cap.er.24h, 120 MG PO BID, #30 CAPSULE. Prov:BINA XIONG MD 02/24/23 Cyanocobalamin (Vitamin B-12) (Vitamin B-12) 1,000 Mcg Tablet, 1000 MCG PO DAILY, #30 TAB Prov:BINA XIONG MD 02/24/23 Folic Acid (Folvite) 1 Mg Tab, 1 MG PO DAILY, #30 TAB Prov:BINA XIONG MD 02/24/23 Ferrous Sulfate (Ferrous Sulfate) 324 Mg Tablet., 325 MG PO QMOWEFRSA, #15 TAB Prov:BINA XIONG MD 02/24/23 Reported Medications Cetirizine HCl (Cetirizine HCl) 10 Mg Tablet, 10 MG PO DAILY, TAB 10/24/20 Simvastatin (Simvastatin) 20 Mg Tablet, 20 MG PO HS, TAB 10/24/20 Past Medical History Past Medical History: A-Fib, GERD, Heart Disease, Hypertension Additional Past Medical Hx: VIRTIGO, BLOOD CLOTS BILATERAL LOWER EXT Surgical History: Unknown Social History: Negative, Lives with family Review of System Dictation Constitutional-no chills, weight loss/gain, fever Eyes-no injury, pain, redness and discharge ENT-no injury, pain, swelling Cardiovascular no chest pain, palpitations, edema Respiratory no shortness of breath, cough, wheezing Abdomen/GI-no abdominal pain, diarrhea, constipation, vomiting, nausea Back no injury and pain Genitourinary no injury, bleeding and discharge Musculoskeletal/extremities no injury, deformity Skin no rash, discoloration Neuro-no headache, weakness, numbness, tingling, seizures, tremors Psych-no suicidal ideation, homicidal ideation, hallucinations, depression, anxiety, memory loss Initial Vital Sign VS Vital Signs Date Time Temp Pulse Resp B/P (MAP) Pulse Ox O2 Delivery O2 Flow Rate FiO2 11/11/24 09:34 98.1 98 20 174/107 98 0 Physical Exam Dictation General-patient is awake alert and oriented Head/neck-normocephalic, atraumatic Eyes-PERRL, EOMI, vision at baseline Neck-trachea midline, supple, no nuchal rigidity Cardiovascular-RRR, normal S1/S2, no MRG is, no JVD Respiratory-no distress, wheezing, rales, rhonchi Abdomen-no tenderness, guarding, soft, nondistended Skin warm, dry, normal turgor, no rash Musculoskeletal/extremities pulses equal, no cyanosis. Pain on rotation of left hip. Neuro-COA X 4, GCS 15, strength 5/5, CN 2-12 intact Psych-normal behavior, mood and affect normal Results (Laboratory/Radiology) Laboratory/Radiology Laboratory Tests Test 11/11/24 10:23 11/11/24 10:33 Urine Color LIGHT-YELLOW (YELLOW) Urine Appearance CLEAR (CLEAR) Urine pH 7.0 (5.0-8.0) Urine Specific [place] 1.013 (1.001-1.031) Urine Protein 50 mg/dL (NEGATIVE) H Urine Glucose (UA) NEGATIVE mg/dL (NEGATIVE) Urine Ketones NEGATIVE mg/dL (NEGATIVE) Urine Occult Blood SMALL (NEGATIVE) H Urine Nitrate NEGATIVE (NEGATIVE) Urine Bilirubin NEGATIVE mg/dL (NEGATIVE) Urine Urobilinogen 0.2 mg/dL (0.2-1.0) Urine Leukocyte Esterase NEGATIVE Varsha/uL Urine RBC 6-10 /HPF (0-1) H Urine WBC 0-1 /HPF (0-1) Urine Squamous Epithelial Cells RARE /HPF (0-2) Urine Bacteria None /HPF (None Seen) White Blood Count 5.9 K/uL (4.8-10.8) Red Blood Count 4.09 MIL/uL (4.00-5.50) Hemoglobin 11.0 g/dL (12.0-16.0) L Hematocrit 36.3 % (36-48) Mean Corpuscular Volume 88.8 fL (79-99) Mean Corpuscular Hemoglobin 26.9 pg (27.0-33.0) L Mean Corpuscular Hemoglobin Concent 30.3 g/dL (32.0-36.0) L Red Cell Distribution Width 15.6 % (11.0-15.5) H Platelet Count 249 K/uL (130-400) Mean Platelet Volume 9.8 fL (7.5-10.5) Immature Granulocyte % (Auto) 0.2 % (0-1) Neutrophils (%) (Auto) 63.7 % (40.0-77.0) Lymphocytes (%) (Auto) 22.5 % (21.0-51.0) Monocytes (%) (Auto) 11.3 % (3.0-13.0) Eosinophils (%) (Auto) 1.5 % (0.0-8.0) Basophils (%) (Auto) 0.8 % (0.0-5.0) Neutrophils # (Auto) 3.8 K/uL (1.8-7.7) Lymphocytes # (Auto) 1.3 K/uL (1.0-4.8) Monocytes # (Auto) 0.7 K/uL (0.1-1.0) Eosinophils # (Auto) 0.09 K/uL (0.00-0.70) Basophils # (Auto) 0.05 K/uL (0.00-0.20) Absolute Immature Granulocyte (auto 0.01 K/uL (0-1) Nucleated Red Blood Cells 0.0 % (0.0-0.19) Red Blood Cell Morphology See comments Sodium Level 140 mmol/L (136-145) Potassium Level 3.5 mmol/L (3.5-5.1) Chloride Level 103 mmol/L (101-111) Carbon Dioxide Level 31 mmol/L (21-32) Blood Urea Nitrogen 21 mg/dL (7-18) H Creatinine 1.5 mg/dL (0.5-1.0) H Glomerular Filtration Rate Calc 34 mL/min (>90) Random Glucose 113 mg/dL (70-105) H Total Calcium 9.2 mg/dL (8.5-10.1) EKG Comment: EKG obtained 11/11/2024 at 10:00:17 A-fib Rate [address] Elevations/depressions ED Course ED Course Orders Procedure Category Date Status Time Cbc With Differential LAB 11/11/24 Complete 09:45 Basic Metabolic Panel LAB 11/11/24 Complete 09:45 Urinalysis Profile LAB 11/11/24 Complete 09:45 12 Lead Ekg Tracing- EKG 11/11/24 Resulted Technical 09:45 Ct Abdomen/Pelvis W/O CT 11/11/24 Resulted Contrast 09:45 Acetaminophen With PHA 11/11/24 Complete Codeine (Tylenol-Code 10:00 Acetaminophen With PHA 11/11/24 Complete Codeine (Tylenol-Code 10:00 Ketorolac PHA 11/11/24 Complete Tromethamine 15mg/Ml 11:30 Current Medications Medications (Trade) Dose Ordered Sig/Martinez Route PRN Reason Start Time Stop Time Status Last Admin Dose Admin Acetaminophen/ Codeine Phosphate (TYLenol-coDEINE TAB) 1 tab Q6H PRN PO MODERATE PAIN (4-6) 11/11/24 10:00 11/11/24 12:40 DC 11/11/24 12:08 Acetaminophen/ Codeine Phosphate (TYLenol-coDEINE TAB) 2 tab Q6H PRN PO SEVERE PAIN (7-10) 11/11/24 10:00 11/11/24 12:03 DC Ketorolac Tromethamine (toRADol) 15 mg ONCE ONCE IM 11/11/24 11:30 11/11/24 11:31 DC Vital Signs Date Time Temp Pulse Resp B/P (MAP) Pulse Ox O2 Delivery O2 Flow Rate FiO2 11/11/24 09:34 98.1 98 20 174/107 98 0 Medical Decision Making MDM MDM INITIAL IMPRESSION Initial history and physical concerning for left hip pain, possible kidney stone, possible UTI Contributing medical problems: Old age I have reviewed the triage nursing notes and vital signs. Initial plan: Laboratory evaluation , UA, CT abdomen/pelvis w/o contrast DATA REVIEW I have reviewed additional NN, repeat VS, and monitoring where indicated. Heart rate, blood pressure, and O2 saturation are acceptable. ED COURSE Interventions: None Reassessment: DISPOSITION Final diagnostic impression: I discussed my findings, clinical impression and treatment recommendations with the patient. My final plan for disposition was made based upon -mild risk of complications and potential morbidity of the patient's condition. -Discussion with the patient regarding management options. [diposition] DX & DISP Disposition: Discharge Departure Impression: Primary Impression: Arthritis pain, hip Condition: Stable Scripts Meloxicam (Meloxicam) 15 Mg Tablet 7.5 MG PO DAILY PRN for PAIN for 20 Days, #20 TAB Prov: SHEILA ALMARAZ DO 11/11/24 Additional Instructions: Your symptoms are consistent with arthritis. The CT scan of your abdomen and pelvis shows arthritis in both of your hips, worse on the left. You received a Toradol injection and Tylenol here in the ER. Your lab work ( CBC, BMP, urinalysis) is unremarkable. I have prescribed meloxicam, which is an anti-inflammatory Pain medication. You can take this once per day for pain or discomfort as needed. I recommend that you take this medication for the next five days or so. Do not mix this medication with hmfw-bdu-ifgnaha ibuprofen or naproxen. You can also take 1000 mg of Tylenol Arthritis up to 4 times per day. This medication is czky-etp-ohhxzyj. I also recommends Voltaren gel. You can apply this twice per day to the affected area. This medication is dwcd-czk-[id number]. You can try ailb-fce-qqoygrx pain patches (Salonpas or lidocaine). You can use these two or 3 times per day as needed. Please return to the emergency department if you have any concerns. I also recommend he follow up with your primary doctor regarding your recent ER visit. Referrals: FAUSTO RIVERS (PCP) I performed a substantive portion of the visit. I have reviewed and personally made and approve the management plan that is documented in the notes by myself with [facility]/resident. I acknowledged full responsibility for the patient's management plan. MERI REYES MD Nov 11, 2024 10:07 SHEILA ALMARAZ DO Nov 11, 2024 11:56
--- NOTE | 2024-11-11 10:12 | EKG ---
[facility] Test Date: 2024-11-11 Test Time: 10:00:17 Pat Name: YASH CHRISTIANSON Department: [facility] Room: Gender: F Benefits Clerk: [id number] : [id number] Requested By: MERI REYES Order Number: [id number] Reading MD: Stephen Escobedo Measurements Intervals [place] Rate: 90 P: 0 ID: 0 QRS: 13 QRSD: 98 T: 264 QT: 364 QTc: 447 Interpretive Statements Atrial fibrillation Repol abnrm suggests ischemia, diffuse leads Compared to ECG 02/16/2023 01:39:31 Early repolarization now present ST (T wave) deviation no longer present Possible ischemia still present Electronically Signed On 11-11-2024 14:03:22 [employer] ROE TECHNICIAN by Stephen Escobedo Please click the below link to view image of tracing.
[2024-11-11 10:35] LABS: APPEARANCE,URINE CLEAR (CLEAR); BILIRUBIN,URINE NEGATIVE (NEGATIVE); COLOR,URINE LIGHT-YELLOW (YELLOW); GLUCOSE, URINE (UA) NEGATIVE (NEGATIVE); KETONES,URINE NEGATIVE (NEGATIVE); LEUKOCYTE ESTERASE ,URINE NEGATIVE Leu/uL (NEGATIVE); NITRATE,URINE NEGATIVE (NEGATIVE); OCCULT BLOOD,URINE SMALL (NEGATIVE); PROTEIN,URINE 50 mg/dL (NEGATIVE); UROBILINOGEN,URINE 0.2 mg/dL (0.2-1.0)
[2024-11-11 10:43] LABS: ADD UA MICROSCOPIC YES
[2024-11-11 10:45] LABS: SQUAMOUS EPITHELIAL CELL,UR RARE /HPF (0-2); WBC,URINE 0-1 /HPF (0-1)
[2024-11-11 10:50] LABS: BASOPHILS # (AUTO) 0.05 K/uL (0.00-0.20); BASOPHILS % (AUTO) 0.8 % (0.0-5.0); EOSINOPHILS # (AUTO) 0.09 K/uL (0.00-0.70); EOSINOPHILS % (AUTO) 1.5 % (0.0-8.0); HEMATOCRIT 36.3 % (36-48); IMMATURE GRANULOCYTE ABSOLUTE 0.01 K/uL (0-1); LYMPHOCYTES # (AUTO) 1.3 K/uL (1.0-4.8); LYMPHOCYTES % (AUTO) 22.5 % (21.0-51.0); MEAN CORPUSCULAR HEMOGLOBIN 26.9 pg (27.0-33.0); MEAN CORPUSCULAR HGB CONC 30.3 g/dL (32.0-36.0); MEAN CORPUSCULAR VOLUME 88.8 fL (79-99); MONOCYTES # (AUTO) 0.7 K/uL (0.1-1.0); MONOCYTES % (AUTO) 11.3 % (3.0-13.0); NEUTROPHILS # (AUTO) 3.8 K/uL (1.8-7.7); NEUTROPHILS % (AUTO) 63.7 % (40.0-77.0); PLATELET COUNT (AUTO) 249 K/uL (130-400); RED BLOOD CELL COUNT(AUTO) 4.09 MIL/uL (4.00-5.50); RED CELL DISTRIBUTION WIDTH 15.6 % (11.0-15.5); WHITE BLOOD COUNT (AUTO) 5.9 K/uL (4.8-10.8)
[2024-11-11 11:00] LABS: CREATININE 1.5 mg/dL (0.5-1.0); POTASSIUM 3.5 mmol/L (3.5-5.1)
[2024-11-11] MEDS ORDERED: ketOROlac 15MG/ML VIAL (15MG/ML) IM ONE (11:30)
--- NOTE | 2024-11-11 11:40 | HMCIMG ---
CT ABDOMEN/PELVIS W/O CONTRAST REASON: Left hip pain, kidney stone? COMPARISON: 01/23/2021 FINDINGS: There is cardiomegaly. There is no pulmonary vascular congestion. Lung bases are clear. There are no focal liver lesions. There are normal-appearing kidneys.. There is a 2.4 cm cyst in the spleen, status post vessels calcification, this appearance is stable compared to previous exam in 2020.. Spleen appears otherwise normal as does the pancreas. There has been a previous cholecystectomy. There is moderate sigmoid diverticulosis without evidence of diverticulitis. Bowel loops appear otherwise unremarkable. This includes normal appearance of the appendix There is no evidence of free fluid or intraperitoneal air. There are no focal fluid collections. Aorta and retroperitoneum appear normal as do pelvic soft tissue structures. The anterior abdominal wall is intact. There is moderate bilateral hip joint space narrowing. There are no fractures in the pelvis or proximal femurs. There are degenerative changes in the lower lumbar spine as well. IMPRESSION: 1. Moderate sigmoid diverticulosis without evidence of diverticulitis. 2. Cardiomegaly without pulmonary vascular congestion. 3. 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 4. No acute finding in the abdomen or pelvis. CT was performed with one or more following dose reduction techniques: automated exposure control, adjustment of the mA and kv according to patient's size, or use of a iterative reconstruction technique.
[2024-11-11] MEDS ORDERED: MELO-108 PO (11:56)
[2024-11-11] MEDS: acetaMINOPHEN WITH coDEINE 1 TAB TAB PO PRN (12:08)
[2024-11-16] MEDS ORDERED: BENZ-39 PO (19:11)
[2024-11-16] MEDS ORDERED: METO100T14 PO (19:11)
[2024-11-16] MEDS ORDERED: DILT30 PO (19:11)
[2024-11-16] MEDS ORDERED: APIX5TAB PO (19:11)
[2024-11-16] MEDS ORDERED: ATOR10TA69 PO (19:11)
[2024-11-16] MEDS ORDERED: CHLO25TA3 PO (19:11)
== END 2024-11-11 12:40 | disposition home or self-care (01) ==
LOC: EDH 09:31
DX: M16.12 Unilateral primary osteoarthritis, left hip (principal); I11.9 Hypertensive heart disease without heart failure; I50.9 Heart failure, unspecified; I48.91 Unspecified atrial fibrillation; K21.9 Gastro-esophageal reflux disease without esophagitis; Z79.899 Other long term (current) drug therapy
CPT/HCPCS: 36415; 74176; 80048; 81001; 85025; 93005; 99284; J1885